=== PATIENT | female | born 1985 | race Caucasian/White ===

== ENCOUNTER 2020-11-12 14:59 | Outpatient (CLI) | payer BC, SELFPAY ==
--- NOTE | ~2020-11-12 | MM_ITS ---
EXAMINATION: MM screening gonzalo BI w estevan HISTORY: Screening mammogram, family history of breast cancer in her mother. TECHNIQUE: Craniocaudal and mediolateral oblique 3-D tomosynthesis images were obtained and synthetic 2-D images were generated. CAD analysis was submitted and interpreted. COMPARISON: None, baseline BREAST PARENCHYMAL COMPOSITION: The breasts are extremely dense, which lowers the sensitivity of mamm ography. FINDINGS: RIGHT BREAST: There is no evidence of suspicious mass, calcification, or architectural distortion to suggest malignancy. LEFT BREAST: An asymmetry is present in the posterior third of the lower, slightly inner breast on th e craniocaudal view. IMPRESSION: 1. Left breast asymmetry on the craniocaudal view. 2. Additional mammographic views and possible breast ultrasound are recommended to evaluate for malig markel and establish a baseline given that this is the first mammographic examination. BI-RADS Category 0: Incomplete: Needs additional imaging evaluation. Reviewed, dictated and finalized at location A. IMPRESSION: 1. Left breast asymmetry on the craniocaudal view. 2. Additional mammographic views and possible breast ultrasound are recommended to evaluate for malignancy and establish a baseline given that this is the fir st mammographic examination. BI-RADS Category 0: Incomplete: Needs additional imaging evaluation.
== END 2020-11-12 15:00 | disposition home or self-care (01) ==
LOC: ANHIMG 15:02
PROVIDERS: PCP Pediatrics; Visit Provider Obstetrics & Gynecology
DX: Z12.31 Encounter for screening mammogram for malignant neoplasm of breast (principal); R92.8 Other abnormal and inconclusive findings on diagnostic imaging of breast
CPT/HCPCS: 77063; 77067

== ENCOUNTER 2020-12-17 13:21 | Outpatient (CLI) | payer BC, SELFPAY ==
--- NOTE | ~2020-12-17 | MMUS_ITS ---
EXAMINATION: MM diagnostic mammo unilat LT, US breast BI complete HISTORY: Left breast asymmetry reported on screening craniocaudal view of 11/12/2020 TECHNIQUE: Additional 3-D tomosynthesis images of the left breast were performed and synthetic 2-D im ages were generated. CAD analysis was submitted and interpreted. High resolution complete left breast ultrasound was performed. Complete right breast ultrasound examination was also performed at the [facility] of the patient given her mother's from breast cancer. COMPARISON: 11/12/2020 bilateral digital screening mammogram BREAST PARENCHYMAL COMPOSITION: The breasts are extremely dense, which lowers the sensitivity of mamm ography. FINDINGS: MAMMOGRAPHIC FINDINGS: There is extremely dense breast tissue which prevents confirmation or exclusion of breast masses. No architectural distortion, malignant calcification, skin thickening or retraction is evident. ULTRASOUND: Right breast: No suspicious mass or shadowing of the right breast. Left breast: 12:00 5 cm from nipple: Parallel circumscribed irregular hypoechoic 5.9 x 2.7 x 4.1 mm solid lesion w ithout internal vascularity or suspicious shadowing. Due to the irregular margination and the patient's family history of breast cancer, ultrasound-guided biopsy is recommended. IMPRESSION: 1. 5.9 mm left breast 12:00 mildly irregular solid mass 2. Ultrasound-guided biopsy of left breast 12:00 mass is recommended BI-RADS category 4, suspicious findings. Dr. Thomas telephoned the left diagnostic mammogram and bilateral breast ultrasound report and ultrasou nd guided biopsy recommendation for left breast at 12:[address] Mcbride's voicemail on 12/17/2020 at 14 46 hours. Reviewed, dictated and finalized at location A. IMPRESSION: 1. 5.9 mm left breast 12:00 mildly irregular solid mass 2. Ultrasound-guided biopsy of left breast 12:00 mass is recommended BI-RADS category 4, suspicious findings. Dr. Thomas telephoned the left diagnostic mammogram and bilateral breast ultrasou nd report and ultrasound guided biopsy recommendation for left breast at 12:[address] Mcbride's voicemail on 12/17/2020 at 1446 hours.
== END 2020-12-17 13:22 | disposition home or self-care (01) ==
LOC: ANHIMG 13:23
PROVIDERS: PCP Pediatrics; Visit Provider Obstetrics & Gynecology
DX: R92.8 Other abnormal and inconclusive findings on diagnostic imaging of breast (principal)
CPT/HCPCS: 76641; 77065

== ENCOUNTER 2023-01-17 01:45 | Day surgery (SDC) | payer BC, SELFPAY ==
[2023-01-09 09:59] VITALS: BMI 19.2
--- NOTE | 2023-01-09 10:03 | PC.NURSE ---
Report to the Outpatient Waiting Room, entrance under the green pavilion located off [facility], at time 1000 on date 01/17/23. Planned Procedure Time: 1200. Time changes happen often and if your time is changed the preop area will call you the afternoon before. - You and your visitor will be asked to self-screen and do not enter if you have any COVID symptoms. - A mask is optional within the hospital at this time. Patients may have clear liquids (water, carbonated beverages, clear teas, apple juice) until 3 hours prior to surgery with a maximum of 20 ounces. - No food from midnight until time of surgery Take the following medications with a SIP of water the morning of surgery: N/A DO NOT STOP ANY OF YOUR OTHER PRESCRIPTION MEDICATIONS PRIOR TO SURGERY EXCEPT THE FOLLOWING Medications to discontinue per physician: N/A Date to take last dose: N/A Please no make-up, nail setswana, hairspray, perfume, deodorant, or body powder the day of surgery. No jewelry (including any body piercings) or valuables the day of surgery, leave them at home. Please take a shower or bath the night before, or the morning of, surgery with an antibacterial soap. Wear comfortable, loose fitting clothing. - Jewelry must be removed prior to entering the operating room. Rings and piercings that are not removed may be cut off. - The hospital will not accept responsibility for valuables. - Please leave all valuables, including medications, at home the day of surgery. If you are going home after surgery, a licensed bus driver must drive you home. - NO public transportation without another adult if you receive anesthesia. - We recommend that an adult stay with you for 24 hours following discharge. - We also recommend that you do not drive, make important decision, drink alcoholic beverages, or take any drugs that were not prescribed by your health care provider for at least 24 hours after your discharge time. Follow any additional instructions given to you from your surgeon. If you or anyone in your household have experienced Covid symptoms in the past week, please notify your surgeon or the nurse liaison at the phone number below for possible testing. Telephone instructions given to PT - DALILA WADE and asked if any additional questions and then verbalized understanding. Patient advised to call surgeon office or pre surgery nurse liaison [phone] if any additional questions.
[2023-01-17] VITALS (12 sets, daily range): BP systolic 107–128; BP diastolic 61–85; PULSE 60–73; RESP 10–20; TEMP 36.3–37.4; O2SAT 98–100
[2023-01-17] MEDS: LACTATED RINGERS 1,000 ML 30 ML IV CONT ×2 (11:00→13:08)
--- NOTE | 2023-01-17 11:07 | P.PNAN_ITS ---
Anes - Initial Pre Proc Eval Procedure: Operation Date: 01/17/23 12:00 Proposed Procedures p Excision of Left Vaginal Cyst - Maikol Mcbride MD Date/Time: 01/17/23 11:07 Surgeon: Maikol Mcbride MD Pre Op Diagnosis: vaginal cyst Patient Data Age: 37 Gender: F Height: 1.75 m Weight: 59.7 kg Last Vital Signs Temp 37.4 C 01/17/23 10:37 Pulse 73 01/17/23 10:37 Resp 16 01/17/23 10:37 BP 111/81 01/17/23 10:37 Pulse Ox 100 01/17/23 10:37 O2 Del Method Room Air 01/17/23 10:37 Allergies Allergy/AdvReac Type Severity Reaction Status Date / Time Penicillins Allergy Severe Hives / Verified 01/17/23 10:39 Red Face Home Medications Medication Instructions Recorded Confirmed Type etonogestrel 0.12 mg-ethinyl 1 vag ring vaginal ONCE 01/09/23 01/17/23 History estradiol 0.015 mg/24 hr vaginal ring (NuvaRing) Patient hx anesthesia problems: none Family hx anesthesia problems: none Results Review: All pre-operative results and documents have been reviewed as part of the pre- operative evaluation. [facility] Surgical History Surgical History H/O dilation and curettage Family History Family History Father Hypertension Diabetes mellitus Mother Breast cancer Social History Social History Smoking status: Never smoker Alcohol intake: current Drinks per week: 2 Substance use: never Substance use type: does not use Living arrangements: with family Spiritual care concerns: No Anes - Eval Final PreProcedure Day of Procedure 01/17/23 11:07 Patient weight: normal Heart: regular rate and rhythm Lungs: clear to auscultation Airway: Mallampati scale class II Neurological: alert and oriented Last oral intake: >/= 8 hours ASA classification: II Emergent: no Anesthetic plan: proceed Anesthesia type and monitoring: general LMA and standard monitoring Results Review: All pre-operative results and documents have been reviewed as part of the pre-operative evaluation. Informed Consent: The patient's anesthetic plan and its attendant risks and benefits were discussed with the patient/family/POA. Questions were solicited and answers provided to the satisfaction of the patient/family/POA.
[2023-01-17] MEDS: SCOPOLAMINE 1.5 MG PATCH TRANSDERM (11:39)
--- NOTE | 2023-01-17 11:44 | PM.IMHP ---
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 It has become more bothersome recently, and she is asking to have it excised. Review of Systems Review of Systems: All systems reviewed & are unremarkable except as noted in HPI and below PMFSH Surgical History Surgical History (Updated 01/17/23 @ 11:48 by Maikol Mcbride MD) H/O dilation and curettage Family History Family History Father Hypertension Diabetes mellitus Mother Breast cancer Social History Social History Smoking status: Never smoker Alcohol intake: current Drinks per week: 2 Substance use: never Substance use type: does not use Living arrangements: with family Spiritual care concerns: No Meds Home Medications and Allergies Home Medications Medication Instructions Recorded Confirmed Type etonogestrel 0.12 mg-ethinyl 1 vag ring vaginal ONCE 01/09/23 01/17/23 History estradiol 0.015 mg/24 hr vaginal ring (NuvaRing) Allergies Allergy/AdvReac Type Severity Reaction Status Date / Time Penicillins Allergy Severe Hives / Verified 01/17/23 10:39 Red Face Vital Signs Vital Signs - 24 hr 01/17/23 10:37 Temperature 37.4 C Pulse Rate 73 Respiratory Rate 16 Blood Pressure 111/81 Pulse Oximetry 100 Oxygen Delivery Room Air Exam Const: Orientation/consciousness: patient oriented x3 Other: Well-developed, well-nourished female in no acute distress. Neck: Thyroid: thyroid normal Lymphatic: no lymphadenopathy noted (in neck, axilla or inguinal nodes) Resp: Effort & Inspection: normal respiratory effort Auscultation: clear to auscultation bilaterally Cardio: Rate: regular rate Rhythm: regular rhythm Heart sounds: S1 normal heart sound present and S2 normal heart sound present GI: Other: ABD: Soft, nontender, nondistended. No guarding or rebound tenderness. No hepatosplenomegaly. : General: Yes no CVA tenderness Other: External genitalia: normal female hair distribution, without lesion. Urethral meatus: no lesion, non prolapsed. Bladder: no mass, nontender Vagina: well-estrogenized. No cystocele or rectocele. A left-sided Davin's duct cyst is again noted. Cervix: no lesion or discharge. Uterus: small, anteverted, freely mobile, nontender Adnexa: no mass or tenderness. Anus/perineum: no lesions, nontender Back/Spine/Pelvis: Back: no CVA tenderness Skin: General skin exam: normal color and no rashes or lesions noted Neuro: General: patient oriented x3 Extrem: Other: Extremities: nontender with no edema Psych: Mental Status: mental status grossly normal Affect: normal affect Assessment and Plan Assessment and plan (1) Vaginal wall cyst: Code(s): N89.8 - Other specified noninflammatory disorders of vagina Status: Acute Assessment and Plan: A: Persistent vaginal wall cyst. P: Offered excision of vaginal cyst. She understands risks of surgery to include risks of anesthesia, risks of pain, infection, bleeding, blood products, thromboembolic phenomena and damage to adjacent structures such as bowel, bladder, ureters, blood vessels and nerves. She understands all these risks and elects to proceed with surgery.
--- NOTE | 2023-01-17 11:48 | WPDHPUPDATE1 ---
History and Physical Update Update Date/Time: 01/17/23 11:48 History and Physical has been reviewed, including an updated exam of the patient. There are NO changes in the patient's condition. Risks, benefits, and alternatives have been discussed and questions answered. Patient agrees to proceed with procedure.
[2023-01-17] MEDS: LIDO 1%/EPINEPHRINE 1:100,000 50 ML VIAL INFILTRATE (12:08)
--- NOTE | 2023-01-17 13:08 | W.PM.PROC2 ---
Procedure Note - Detailed Date of Procedure 01/17/23 Pre-op Diagnosis Left sided vaginal wall cyst Post-op Diagnosis Same Procedure Performed Excision of left vaginal wall cyst Surgeon Maikol Mcbride MD Anesthesia General and Local (1% lidocaine with epinephrine) Findings Large left-sided distal vaginal wall cyst, approximately 5 x 3 x 3 cm. Description of Procedure The patient was taken to the operating room where general endotracheal anesthesia was administered. She was prepared and draped in the usual sterile fashion in the dorsal lithotomy position. A weighted speculum was placed posteriorly. The cyst wall was grasped with Allis clamps and elevated. The epithelium overlying the cyst was infiltrated with 7 mL of 1% lidocaine with epinephrine and was incised with a #15 scalpel. The cyst was drained of approximately 100 mL of lopez fluid. The cyst wall was excised sharply and passed off to be sent to pathology. Three layers of interrupted 2-0 vicryl in figure of eight fashion were used to reapproximate the wound edges. Excess vaginal epithelium was sharply excised and discarded. The vaginal epithelium was reapproximated using 0 vicryl in interrupted figure of eight sutures. A red rubber catheter was passed to ensure no kinking of the urethra, and clear urine was noted. Hemostasis was excellent, as was good reapproximation of normal anatomy. Sponge, lap, needle and instrument counts were correct. The patient was awakened and taken to the recovery room in stable condition. I was present and scrubbed through the entire procedure. Implants None Estimated Blood Loss 250 Drains No Packing No Pathology Yes (Vaginal cyst wall.) Complications None Condition Stable Disposition PACU
[2023-01-17] MEDS: fentaNYL CITRATE INJ (*CRX) 100 MCG/2 ML VIAL 25 MCG IV PUSH ×5 (13:17→14:29)
[2023-01-17] MEDS: ONDANSETRON INJ 4 MG/2 ML VIAL IV PUSH (14:12)
[2023-01-17] MEDS: oxyCODONE HCL (*CRX) 5 MG TAB IR PO (15:14)
== END 2023-01-17 15:55 | disposition home or self-care (01) ==
PROVIDERS: PCP Pediatrics; Visit Provider Obstetrics & Gynecology
PROC: (CPT 56440; principal; 2023-01-17 12:00)
DX: N89.8 Other specified noninflammatory disorders of vagina (principal)
CPT/HCPCS: 57135; 88305; A9270; J1100; J2250; J2405; J2704; J3010; J7120